=== PATIENT | female | born 1985 | race Caucasian/White ===

== ENCOUNTER 2016-06-01 05:50 | Emergency (ER) | payer OTHER ==
[2016-06-01 06:02] VITALS: BP 135/83; PULSE 87; RESP 16; TEMP 98.1; O2SAT 100
--- NOTE | 2016-06-01 06:18 | ED PDOC ---
HPI: Female Pain Time Seen by Provider: 06/01/16 06:08 Chief Complaint (Nursing): Female Genitourinary Chief Complaint (Provider): Dysuria and Suprapubic Pain History Per: Patient Onset/Duration Of Symptoms: Days (6) Current Symptoms Are (Timing): Still Present Severity: Moderate Quality Of Discomfort: "Pain" Associated Symptoms: Back Pain, Urinary Symptoms. denies: Fever, Chills, Nausea , Vomiting, Diarrhea, Loss Of Appetite, Chest Pain, Constipation Alleviating Factors: None Additional History Per: Patient Additional Complaint(s): 30 y/o female who complains of dysuria, urinary frequency, suprapubic abdominal pain, and cloudy urine for the last 6 days. She complains of pain, worse with urination, and intermittently radiating into the right lower back. Denies hematuria, vaginal complaints, fever, chills, nausea, vomiting, or other complaint. She is not in the care of a PMD. Abnormal Vaginal Bleeding: No Past Medical History Vital Signs: Last Vital Signs Temp 98.1 F 06/01/16 05:59 Pulse 87 06/01/16 05:59 Resp 16 06/01/16 05:59 BP 135/83 06/01/16 05:59 Pulse Ox 100 06/01/16 05:59 - Medical History PMH: No Chronic Diseases - Surgical History Surgical History: No Surg Hx - Family History Family History: States: Unknown Family Hx - Social History Current smoker - smoking cessation education provided: No Alcohol: None Drugs: Denies - Home Medications Home Medications: Ambulatory Orders Medication Instructions Recorded Nitrofurantoin Macrocrystals 100 mg PO BID #14 cap 06/01/16 [Macrobid] Phenazopyridine HCl [Pyridium] 100 mg PO TID #6 tablet 06/01/16 - Allergies Allergies/Adverse Reactions: Allergies Allergy/AdvReac Type Severity Reaction Status Date / Time No Known Allergies Allergy Verified 06/01/16 06:02 Review of Systems ROS Statement: Except As Marked, All Systems Reviewed And Found Negative Constitutional: Negative for: Fever, Chills Gastrointestinal: Positive for: Abdominal Pain. Negative for: Nausea, Vomiting Genitourinary Female: Positive for: Dysuria, Frequency. Negative for: Hematuria , Vaginal Discharge, Vaginal Bleeding Musculoskeletal: Positive for: Back Pain Physical Exam - Physical Exam Appears: Positive for: Well, Non-toxic, No Acute Distress Head Exam: Positive for: ATRAUMATIC, NORMAL INSPECTION, NORMOCEPHALIC Skin: Positive for: Normal Color, Warm, Dry Neck: Positive for: Painless ROM Cardiovascular/Chest: Positive for: Regular Rate, Rhythm Respiratory: Positive for: Normal Breath Sounds Gastrointestinal/Abdominal: Positive for: Bowel Sounds, Soft, Tenderness ( suprapubic). Negative for: Guarding, Rebound Back: Positive for: Normal Inspection. Negative for: L CVA Tenderness, R CVA Tenderness Extremity: Positive for: Normal ROM Neurologic/Psych: Positive for: Alert, Oriented - ECG O2 Sat by Pulse Oximetry: 100 (RA) Pulse Ox Interpretation: Normal Medical Decision Making Medical Decision Making: Initial Impression: UTI uncomplicated v. Cystitis v. Pylonephritis Initial Plan: 1. UA and Urine Test 06:30: UA is positive for leukocytes. Sample sent for culture. Discharge Instructions: Re-evaluation. Patient feels better. Discussed results and plan with patient who expresses understanding. Counseling was provided regarding the diagnosis and prognosis. All questions answered and there is agreement with the plan to discharge home with instructions. Patient stable for discharge. Return if symptoms persist or worsen. Scribe Attestation: Documented by Pamela Dennis, acting as a scribe for Yvonne Macias MD. Scribe Attestation: All medical record entries made by the Scribe were at my direction and personally dictated by me. I have reviewed the chart and agree that the record accurately reflects my personal performance of the history, physical exam, medical decision making, and the department course for this patient. I have also personally directed, reviewed, and agree with the discharge instructions and disposition. Disposition - Clinical Impression Clinical Impression: Urinary tract infection - Patient ED Disposition Is Patient to be Admitted: No Doctor Will See Patient In The: Office Counseled Patient/Family Regarding: Studies Performed, Diagnosis, Need For Followup - Disposition Referrals: [facility] [Outside] Disposition: Routine/Home Disposition Time: 06:30 Condition: GOOD Additional Instructions: Return for worsening. Follow up with your PCP in 2-3 days. Regresa por empeoramiento. Segua con adair medico en 2-3 mesa. Prescriptions: Nitrofurantoin Macrocrystals [Macrobid] 100 mg PO BID #14 cap Phenazopyridine HCl [Pyridium] 100 mg PO TID #6 tablet Instructions: Urinary Tract Infection in Women (ED) Print Language: [id number]
== END 2016-06-01 06:47 | disposition home or self-care (01) ==
LOC: H.ER 05:50
DX: N39.0 Urinary tract infection, site not specified (principal)

== ENCOUNTER 2017-04-13 23:30 | Emergency (ER) | payer SELFPAY | END 2017-04-14 02:01 | disposition left against medical advice (07) | LOC: H.ER 23:30 | DX: Z02.89 Encounter for other administrative examinations (principal) ==